=== PATIENT | female | born 1945 | race Caucasian/White ===

== ENCOUNTER 2018-05-12 09:58 | Day surgery (SDC) | payer MEDICARE, BC ==
--- NOTE | 2018-05-12 06:58 | History and Physical - [place] ---
CHIEF COMPLAINT/HISTORY OF CHIEF COMPLAINT: This patient with a history of intractable lumbar radiculopathy had a spinal cord stimulator implant on although initially stimulation patterns appeared to be quite appropriate for her pain, over a number of months to year stimulation patterns had shifted. An x-ray showed one of the leads had migrated dramatically and electronic analysis of the others showed electrode failure. Despite multiple attempts at reprogramming we have been unsuccessful to regain stimulation. We discussed removal or replacement. Along with this the [employer] system has released a new generator which dramatically improves the overall effectiveness of stimulation patterns by providing new waveform options in combination waveform pattern. She is here for revision with one possibly two lead replacements and generator. PAST MEDICAL HISTORY: Hypertension and restless leg syndrome. PAST SURGICAL HISTORY: Bariatric surgery, carpal tunnel release, thyroid surgery, abdominal surgery, and stimulator implant. EMPLOYMENT STATUS: Retired. MEDICATIONS ON ADMISSION: List to be provided. ALLERGIES: List to be provided. FAMILY/PSYCHOSOCIAL HISTORY: Social history - Noncontributory. Family history - Thyroid disease and hypertension. SYSTEMS REVIEW: The patient seems appropriate in no acute distress. The remainder of the systems review is positive for thyroid disease, sleep disturbance, blood pressure problems, degenerative arthritis, depression, and difficulty sleeping. PHYSICAL EXAMINATION: Height is 5'2", weight is 140. No vital signs. HEENT: Within normal limits. LUNGS: Clear. HEART: Regular rate and rhythm. ABDOMEN: Nontender. MUSCULOSKELETAL: Examination of the musculoskeletal system shows the incisional site right of the midline for leads and the generator at the right posterior gluteal margin. The incisions are all intact. No breakdown or cellulitis. Lower extremity functionality shows mild sensory and motor weakness to both extremities. Ambulation - No assistive device utilized. NEUROLOGIC: Cranial nerves are intact. IMPRESSION: 1. INTRACTABLE LUMBAR RADICULOPATHY, ICD-10 CODE M54.16 AND M54.17. 2. SPINAL CORD STIMULATOR INTERNAL GENERATOR, NONFUNCTIONAL. PLAN: The patient is here on an outpatient basis for removal and replacement of one possibly two leads and generator. The number of leads will be decided in the room once we have been able to appropriately test. The procedure will be considered outpatient although an overnight stay will be evaluated. The risks, side effects and complications have all been reviewed. JOB NUMBER: [id number] [facility]
[~2018-05-12 09:58] MED LIST: ACETAMINOPHEN 1,000 MG/100 ML BTL IV ONE; CEFAZOLIN 2 Gram 2 GM/50 ML BAG IVPB ONE; FAMOTIDINE 20MG TABLET PO ONE; MECLIZINE 25 MG TABLET PO ONE; METOCLOPRAMIDE 10 MG TABLET PO ONE
[2018-05-12] MEDS ORDERED: MORPHINE SULFATE PF 10MG/10ML VIAL IV ONE (09:59)
[2018-05-12] MEDS ORDERED: LIDOCAINE 1% W/EPI 1:200,000 MPF 30ML SQ ONE (09:59)
[2018-05-12] MEDS ORDERED: FENTANYL PF 100MCG/2ML VIAL IV ONE (09:59)
[2018-05-12] MEDS ORDERED: LIDOCAINE 2% MDV (20MG/ML) 20ML VIAL IV ONE (09:59)
[2018-05-12] MEDS ORDERED: FLUMAZENIL 1MG/10ML VIAL IV ONE (09:59)
[2018-05-12] MEDS ORDERED: BUPIVACAINE 0.5% W/EPI MPF 30 ML VIAL IVP ONE (09:59)
[2018-05-12] MEDS ORDERED: MORPHINE SULFATE 4 MG/ML VIAL IVP ONE (09:59)
[2018-05-12] MEDS ORDERED: MORPHINE SULFATE 5 MG/ML PFS IVP ONE (09:59)
[2018-05-12] MEDS ORDERED: PROPOFOL 10 MG/ML VIAL IV ONE (09:59)
[2018-05-12] MEDS ORDERED: MIDAZOLAM HCL 2MG/2ML VIAL IV ONE (09:59)
[2018-05-12] MEDS ORDERED: CEFAZOLIN 1G VIAL IM ONE (09:59)
[2018-05-12] MEDS ORDERED: MORPHINE SULFATE 4 MG/ML VIAL ONE (12:30)
--- NOTE | 2018-05-17 19:10 | Operative Note ---
DATE OF SURGERY: 05/12/18 PREOPERATIVE DIAGNOSES: 1. INTRACTABLE LUMBAR RADICULOPATHY. 2. TWO LEAD SPINAL CORD STIMULATOR INTERNAL GENERATOR NONFUNCTIONAL. OPERATION: 1. INCISION, SUBCUTANEOUS DISSECTION, AND REMOVAL OF TWO INDWELLING EPIDURAL STIMULATORS. 2. INCISION, SUBCUTANEOUS DISSECTION, AND REMOVAL OF INTERNAL PULSE GENERATOR AT RIGHT POSTERIOR GLUTEAL MARGIN. 3. EPIDURAL ACCESS T12-1. PLACEMENT OF SPINAL CORD STIMULATOR LEAD 1, A [employer] 16 WITH 6 ELECTRODES POSITIONED LEFT T7. 4. EPIDURAL ACCESS LEFT AT T11-12. PLACEMENT OF SPINAL CORD STIMULATOR LEAD 2, A [employer] 16 WITH 6 ELECTRODES POSITIONED RIGHT T7. 5. REMOVAL OF LEAD 1 AND LEAD 2. 6. CLOSURE OF INCISIONS 2-0 STRATAFIX FOR FASCIA, ARIANA FOR SKIN. SURGEON: MIRA LUTHER D.O. ANESTHESIA: LOCAL SEDATION. ANESTHESIA PROVIDER: GIO KAPLAN CRNA. INDICATION: This patient presents with a history of an intractable lumbar radiculopathy has a two lead spinal cord stimulator internal generator, which over some time appears to have migrated and has become nonfunctional. X-rays showed significant migration of the right lead. Electronic analysis showed problems and migration with the left lead. She was given the option to remove or replace; she opted to remove and replace. PROCEDURE: Intravenous line, vital sign monitoring, IV sedation by Anesthesia. Patient position prone. Sterile prep, sterile technique. The previous incision line for the two implanted leads infiltrated, incision made, and subcutaneous dissection was conducted to the anchor. The anchor and suture were removed and the two indwelling leads were removed intact. At the right posterior gluteal margin generator site, skin infiltrated, incision made, and subcutaneous dissection was used to open the generator pouch and the generator was then removed along with its connections to the leads. At the midline T12-L1 and T11- 12 using two separate curved axis Epimed needles, the epidural space was accessed. At T12-1, spinal cord stimulator lead 1, a [employer] 16 with 6 electrodes was positioned left at T7. With the epidural access at T11- 12, same technique, same type of needle, Epimed curved access, spinal cord stimulator lead 2, a [employer] 16 with 6 electrodes positioned right at T7. We now had two leads left and right of the midline at T7. At that point, the patient as she emerged became quite uncontrollable. She thrashed and we were unable to keep her in position. She continued to move complaining about a restless leg, complaining about pain, and complaining and begging for us to stop. At that point, the two leads were in the space at the appropriate position but we were unable to keep the patient still. It became unsafe at that point, the two placed leads were removed, antibiotic irrigation and Bovie for hemostasis, and the incisions were closed with a STRATAFIX suture for fascia and ariana for skin. An OPSITE dressing was placed. She was transported to the Recovery Room. DISCHARGE INSTRUCTIONS: 1. Sites will remain clean and dry. She will be seen in the office in 7-10 days to remove the ariana. 2. Standard medications resumed including the antibiotic, which is a Keflex oral suspension cleared through Pharmacy and cleared through her allergies. 3. There have been no changes to her medications, no additions to her medications. The indwelling leads were removed and the trial leads were removed. She has no indwelling hardware. X-rays were taken to confirm that there were no components remaining in the system. She will be seen in the office for the removal of ariana. She will be monitored until stable then discharged. cc: Dr. Garza JOB NUMBER: [id number] [facility]TDD
== END 2018-05-12 13:40 | disposition home or self-care (01) ==
LOC: SUR 09:58
PROVIDERS: ATTEND Pain Medicine Interventional Pain Medicine
DX: M54.16 Radiculopathy, lumbar region (principal); I10 Essential (primary) hypertension; D64.9 Anemia, unspecified; G62.9 Polyneuropathy, unspecified; G25.81 Restless legs syndrome
CPT/HCPCS: 63661; 63688; 00300; J3010; J0690; J2270 ×2; C1883